=== PATIENT | male | born 1980 | race Caucasian/White ===

== ENCOUNTER 2022-05-08 12:00 | Outpatient (CLI) | payer MEDICAID, SELFPAY | END 2022-05-08 12:01 | disposition home or self-care (01) | LOC: SLEEP 05-09 10:39 | PROVIDERS: Family Provider Nurse Practitioner Family; PCP Nurse Practitioner Family; Visit Provider Family Medicine | DX: G47.10 Hypersomnia, unspecified (principal) | CPT/HCPCS: G0399 ==